=== PATIENT | male | born 1975 | race Caucasian/White ===

== ENCOUNTER 2024-08-21 13:12 | Outpatient (OUT) | payer BC, SELFPAY ==
--- OUTSIDE RECORDS SUMMARY | 2024-07-26 12:15 | XMS_ITS ---
Author Organization [facility] in [place] Address [address] [place] [address] Care Team Providers Care Teacher Of The Deaf Name Role Phone Chuck Rudolph Primary Care Provider Allergies No Known Allergies REASON FOR VISIT establish NO meds back pain, Hypertension Medications Medication SIG (Take, Route, Frequency, Duration) Notes Start Date End Date Status Metoprolol Tartrate 50 MG 1 tablet with food Orally Twice a day for 30 days 07/26/2024 Active Problems Problem Type SNOMED Code ICD Code Onset Dates Problem Status W/U Status Risk Notes Problem Hypertension (16469762) Hypertension (I10) Active confirmed Problem Well adult (756768924) Well adult (Z00.00) Active confirmed Vital Signs Weight 248.0 lbs 07/26/2024 Height 6ft in 07/26/2024 Blood pressure systolic 240 mm Hg 07/27/19 25 Blood pressure diastolic 160 mm Hg 025 BMI 33.63 kg/m2 07/26/2024 Encounters Encounter Location Date Provider Diagnosis [facility] [address] [place] [address] 07/26/2024 Chuck Rudolph Well adult Z00.00 an d Hypertension I10 Assessments Encounter Date Diagnosis (ICD Code) Assessment Notes Treatment Notes Treatment Clinical Notes Section Notes 07/26/2024 Well adult (ICD-10 - Z00.00) 07/26/2024 Hypertension (ICD-10 - I10) Plan Of Treatment Medication Medication Name Sig Start Date Stop Date Notes Metoprolol Tartrate 50 MG 1 tablet with food Orally Twice a day for 30 days 07/26/2024 Pending Test Test Name Order Date HEMOGLOBIN A1C (GLYCO) 07/26/2024 LIPID PANEL (CHOL/TRIG/HDL/LDL) 07/27/19 25 THYROID PANEL (T4/TSH/FREE T3) PSA, SCREENING 07/26/2024 CMP (COMP MET DYER) w/eGFR CKD-EPI 2024 CBC WITH DIFF 07/26/2024 Progress Notes * Donald DIETZ ADOB:[birth year] (49 yo M)Acc No.[id number]:07/26/2024 Progress Note Patient: Donald JARVIS A Provider: Fe Rudolph ([facility])MD :1975 A ge:49 Y S ex:Male Date:07/26/2024 Address:[address] [place], [place] [id number] Check In:04:01 PM ESTCheck O ut:05:00 PM EST Subjective: * Chief Complaints: * e stablish NO meds back painHypertension * HPI: G eneral: BP way up - has been on meds in the past. * ROS: E ENT: hearing changes d enies. v isual changes d enies.?non-healing mouth sores d enies. s wollen glands or neck lumps d enies. h oarseness d enies. s ore throat d enies. d ifficulty swallowing d enies. n ose bleeds d enies. n amanuel congestion d enies. e ar ache d enies. e ar discharge?denies. r inging in ears d enies. l ight sensitivity d enies. e ye pain d enies. b lurring d enies. e ye irritation d enies. d ouble vision d enies.?vision loss d enies. G eneral/Constitutional: Sweats: D enies. F atigue d enies. S leep problems d enies. A norexia d enies. M alaise d enies. W eight loss d enies.?Fatigue or Weakness d enies. F ever or Chills d enies. C ardiovascular: Shortness of Breath w/lying flat d enies. L ightheadedness/dizziness d enies. C hest tightness/ heavy pressure d enies. S welling of legs, ankles, or feet d enies. W aking up with shortness of breath d enies. C hest pain denies. P alpitations d enies. W eight gain d enies. R espiratory: Chronic or frequent cough d enies. C oughing up blood?denies. D ifficulty breathing d enies. P roductive cough d enies. S noring?denies. S hortness of breath that awakens from sleep (PND) d enies. C hest pain d enies. S putum production d enies. W heezing d enies. M usculoskeletal: Joint pain d enies. J oint Fluid d enies. B ack pain d enies. K nee pain d enies. N elayne pain d enies. J oint Stiffness d enies. M uscle cramps d enies. W eakness of muscles d enies. A rthritis d enies. M uscle aches d enies. P ain in shoulder(s) d enies. S wollen joints d enies. * Active Problem List I10 Hypertension Modified On:07/26/2024W/U Status:confirmed Z00.00 Well adult Modified On:07/26/2024W/U Status:confirmed * Medical History: * Surgical History: s houlder surgery- left * Hospitalization/Major Diagno stic Procedure: D enies Past Hospitalization * Family History: F ather: alive. M other: alive. B rother(s): alive. S ister(s): alive. * Medications: N one * Allergies: N .K.D.A.no[Allergies Verified] Objective: * Vitals: W t:248.0lbs, Ht: 6ft, BP: 232/142 mm Hg,240/160mm Hg, BMI:33.63Index, Ht-cm: 182.88 cm, Wt-k.49 kg. * Examination: P hysical Exam: GENERAL: w ell developed, well nourished, in no acute distress. HEAD: n ormocephalic/atraumatic. EYES: p upils equal, round and reactive to light, conjunctivae and sclerae normal. EARS: n o deformity or lesion of external ear, canals and TM appear normal bilaterally, TM's intact, not inflamed with normal light reflex, hearing grossly normal to conversational speech. NOSE: n o deformity, discharge, inflammation, or lesions.? MOUTH: m ucous membranes moist, normal oropharynx and posterior pharynx without lesions or exudates, tongue normal, dentition normal. NECK: n elayne supple, no masses or palpable cervical nodes, trachea midline, thyroid without nodules, masses, tenderness, or enlargement. CHEST: n o chest wall deformity, no chest wall tenderness.? LUNGS: n ormal respiratory effort and clear to auscultation, no wheezes, rales, or rhonchi, good air exchange. CARDIO: r egular rate and rhythm, normal S1 and S2, nor murmur, rub, or gallop. PULSES: n ormal capillary refill. ABDOMEN: s oft, non-distended, non-tender, no masses. MUSCULOSKELETAL: n o deformity or scoliosis noted, normal range of motion, joints normal, no erythema, edema, effusion, or ecchymosis. EXTREMITY: n o clubbing, cyanosis, edema, or deformity with normal ROM in both upper and lower bilateral extremities. NEUROLOGIC: g rossly normal. SKIN: n o rashes, ulcerations, or suspicious lesions. LYMPH NODES: n o cervical adenopathy, nodes normal. MENTAL STATUS: a lert and oriented x3, normal mood and affect. Assessment: * Assessment: 1. W ell adult - Z00.00 (Primary) 2 . H ypertension - I10 Plan: * Treatment: * Procedure Codes: * * Sign off status: Completed Visit Status: C HK (Check Out) true * Provider: Fe Rudolph ([facility])MD Date: 0 07/26/2024 Generated for Printi ng/Fagig/eTransmitting on: 0 08/21/2024 01:20 PM EDT History and Physical Notes * HPI (History of Present Illness) Category Sub-Category Detail Notes Category Not es General BP way up - has been on meds in the past Examination Category Sub-Category Detail Notes Category Not es Physical Exam GENERAL: well developed, well nourished, in no acute distress HEAD: normocephalic/atraum atic EYES: pupils equal, round and reactive to light, conjunctivae and sclerae normal EARS: no deformity or lesi on of external ear, canals and TM appear normal bilaterally, TM's intact, not inflamed with normal light reflex, hearing grossly normal to conversational speech NOSE: no deformity, discha rge, inflammation, or lesions MOUTH: mucous membranes kady st, normal oropharynx and posterior pharynx without lesions or exudates, tongue normal, dentition normal NECK: neck supple, no mass es or palpable cervical nodes, trachea midline, thyroid without nodules, masses, tenderness, or enlargement CHEST: no chest wall deform ity, no chest wall tenderness LUNGS: normal respiratory e ffort and clear to auscultation, no wheezes, rales, or rhonchi, good air exchange CARDIO: regular rate and rhy thm, normal S1 and S2, nor murmur, rub, or gallop PULSES: normal capillary ref ill ABDOMEN: soft, non-distended, non-tender, no masses RECTAL: MUSCULOSKELETAL: no deformity or scol iosis noted, normal range of motion, joints normal, no erythema, edema, effusion, or ecchymosis EXTREMITY: no clubbing, cyanosi s, edema, or deformity with normal ROM in both upper and lower bilateral extremities NEUROLOGIC: grossly normal SKIN: no rashes, ulceratio ns, or suspicious lesions LYMPH NODES: no cervical adenopat hy, nodes normal MENTAL STATUS: alert and oriented x 3, normal mood and affect
--- OUTSIDE RECORDS SUMMARY | 2024-07-27 05:24 | XMS_ITS ---
Author Organization [facility] in [place] Address [address] [place] [address] Care Team Providers Care Mixer Dry Food Products Name Role Phone Chuck Rudolph Primary Care Provider [phone] REASON FOR VISIT refill Medications Medication SIG (Take, Route, Frequency, Duration) Notes Start Date End Date Status Metoprolol Tartrate 50 MG 1 tablet with food Orally Twice a day for 30 days 07/26/2024 Active Encounters Encounter Location Date Provider Diagnosis [address] [address] 07/27/2024 Chuck Rudolph Well adult Z00.00 Assessments Encounter Date Diagnosis (ICD Code) Assessment Notes Treatment Notes Treatment Clinical Notes Section Notes 07/27/2024 Well adult (ICD-10 - Z00.00) Plan Of Treatment Medication Medication Name Sig Start Date Stop Date Notes Metoprolol Tartrate 50 MG 1 tablet with food Orally Twice a day for 30 days 07/26/2024 Progress Notes * Donald DIETZ ADOB:[birth year] (49 yo M)Acc No.[id number]:07/27/2024 Patient: Donald JARVIS :1975 A ge:49 Y S ex:Male Address:[address] [place] [address] [address], [place], [address] * Refills Refill Metoprolol Tartrate Tablet, 50 MG, Orally, 60, 1 tablet with food, Twice a day, 30 days, Refills=11 * true * Date: Generated for Tj montemayor/[place]/Treasure on: 0 08/21/2024 01:19 PM EDT
--- OUTSIDE RECORDS SUMMARY | 2024-08-02 12:00 | XMS_ITS ---
Author Organization [facility] in [place] Address [address] [place] [address] Care Team Providers Care Manufacturing Engineering Intern Name Role Phone Chuck Rudolph Primary Care [...] for 30 days 07/26/2024 Active Vital Signs Weight 249 lbs 08/02/2024 Height 6ft in 08/02/2024 Blood pressure systolic 242 mm Hg 08/03/19 25 Blood pressure diastolic 142 mm Hg 025 BMI 33.77 kg/m2 08/02/2024 Encounters Encounter Location Date Provider Diagnosis [facility] [address] [place] [address] 08/02/2024 Chuck Rudolph Hypertension I10 Assessments Encounter [...] at home regularly. Progress Notes * Donald DIEZT ADOB:[birth year] (49 yo M)Acc No.[id number]:08/02/2024 Progress Note Patient: Donald JARVIS Provider: Fe Rudolph ([facility])MD :1975 A ge:49 Y S ex:Male Date:08/02/2024 Address:[address] [place], [place] [id number] Check In:03:51 PM ESTCheck O ut:04:43 PM [...] Procedure Codes: * Preventive Medicine: Screenings/Counseling: B [place] ACTION PLAN Above Normal BMI Follow-up D ietary management education, guidance, and counseling * * Sign off status: Completed Visit Status: C HK (Check Out) true * Provider: Fe Rudolph ([facility])MD Date: 0 08/02/2024 Generated for Tj montemayor/[place]/eTransmitting on: 0 08/21/2024 01:19 PM EDT History and Physical Notes * [...]
[2024-08-21 13:55] LABS: Basophils Absolute Auto 0.1 10^3/uL (0.0-0.1); Basophils Percent Auto 0.6 % (0.2-2.0); Eosinophils Absolute Auto 0.5 10^3/uL (0.0-0.7); Eosinophils Percent Auto 4.8 % (0.9-7.0); Hematocrit 38.3 % (42.0-54.0); Hemoglobin 12.6 g/dL (14.0-18.0); Immature Granulocytes Abs Auto 0.04 10^3/uL (0.00-0.03); Immature Granulocytes Pct Auto 0.4 % (0.0-0.5); Lymphocytes Absolute Auto 2.4 10^3/uL (1.2-3.8); Mean Corpuscular HGB Conc 32.9 g/dL (29.9-35.2); Mean Corpuscular Hemoglobin 31.1 pg (25.9-34.0); Mean Corpuscular Volume 94.6 fL (80.0-94.0); Mean Platelet Volume 9.7 fL (9.5-13.5); Monocytes Absolute Auto 0.8 10^3/uL (0.3-0.8); Monocytes Percent Auto 8.3 % (1.7-12.0); Neutrophils Absolute Auto 5.8 10^3/uL (1.4-6.5); Neutrophils Percent Auto 60.9 % (43.0-75.0); Platelet Count 406 10^3/uL (150-450); Red Blood Count 4.05 10^6/uL (4.70-6.10); Red Cell Distribution Width 11.8 % (11.0-15.0); White Blood Count 9.5 10^3/uL (4.0-11.0)
[2024-08-21 14:54] LABS: Alanine Aminotransferase 55 U/L (16-63); Albumin Level 3.7 g/dL (3.4-5.0); Alkaline Phosphatase 111 U/L (46-116); Anion Gap 11.4; Aspartate Amino Transferase 22 U/L (15-37); BUN Creatinine Ratio 22.9; Bilirubin Total 0.4 mg/dL (0.2-1.0); Calcium 9.5 mg/dL (8.5-10.1); Carbon Dioxide 30.1 mmol/L (21.0-32.0); Chloride 102 mmol/L (98-107); Chol HDL Ratio 5.9; Cholesterol 231 mg/dL (<=200); Estimated GFR (African America >60 (>=60 mL/min/1.73m^2); Estimated GFR (Non-African Ame >60 (>=60 mL/min/1.73m^2); Free T3 2.29 pg/mL (2.18-3.98); Globulin 3.6 g/dL; Glucose 116 mg/dL (74-106); HDL Cholesterol 39 mg/dL (40-60); Potassium 4.5 mmol/L (3.5-5.1); Sodium 139 mmol/L (136-145); Thyroid Stimulating Hormone 1.956 uIU/mL (0.358-3.740); Total Protein 7.3 g/dL (6.4-8.2); Triglycerides 133 mg/dL (<=150); VLDL CHOLESTEROL 26.6 mg/dL
[2024-08-21 15:20] LABS: Estimated Average Glucose 154 mg/dL
[2024-08-21 15:23] LABS: Prostate Specific Antigen Scrn 1.34 ng/mL (<=4.00)
== END 2024-08-21 13:13 | disposition home or self-care (01) ==
PROVIDERS: PCP Family Medicine; Visit Provider Family Medicine
DX: Z00.00 Encounter for general adult medical examination without abnormal findings (principal)
CPT/HCPCS: 36415; 80053; 80061; 83036; 84436; 84443; 84481; 85025; G0103

== ENCOUNTER 2024-08-26 09:11 | Outpatient (REF) | payer BC, SELFPAY ==
--- OUTSIDE RECORDS SUMMARY | 2024-07-27 05:24 | XMS_ITS ---
Author Organization [facility] in [place] Address [address] [place] [address] Care Team Providers Care Electrician Third Name Role Phone Chuck Rudolph Primary Care Provider [phone] REASON FOR VISIT refill Medications Medication SIG (Take, Route, Frequency, Duration) Notes Start Date End Date Status Metoprolol Tartrate 50 MG 1 tablet with food Orally Twice a day for 30 days 07/26/2024 Active Encounters Encounter Location Date Provider Diagnosis [address] [address] 07/27/2024 Chuck Rudolph Well adult Z00.00 Assessments [...] Donald DIETZ ADOB:[birth year] (49 yo M)Acc No.[id number]:07/27/2024 Patient: Donald JARVIS :1975 A ge:49 Y S ex:Male Address:[address] [place] [address] [address], [place], [address] * Refills Refill Metoprolol Tartrate Tablet, 50 MG, Orally, 60, 1 tablet with food, Twice a day, 30 days, Refills=11 * true * Date: Generated for Tj montemayor/[place]/Treasure on: 0 08/26/2024 09:13 AM EDT
--- OUTSIDE RECORDS SUMMARY | 2024-08-02 12:00 | XMS_ITS ---
Author Organization The [facility] in [place] Address [address] [place] [address] Care Team Providers Care Primary Operator Name Role Phone Chuck Rudolph Primary Care Provider [phone] Allergies No Known Allergies REASON FOR VISIT 1 week f/u Medications Medication SIG (Take, Route, Frequency, Duration) Notes Start Date End Date Status Irbesartan 150 MG 1 tablet Orally Once a day for 30 days 08/02/2024 Active Metoprolol Tartrate 100 MG 1 tablet with food Orally Twice a day for 30 days 07/26/2024 Active Vital Signs Blood pressure systolic 242 mm Hg 08/03/19 25 Blood pressure diastolic 142 mm Hg 025 Height 6ft in 08/02/2024 Weight 249 lbs 08/02/2024 BMI 33.77 kg/m2 08/02/2024 Encounters Encounter Location Date Provider Diagnosis [facility] [address] [place] [address] 08/02/2024 Chuck Rudolph Hypertension I10 Assessments Encounter Date Diagnosis (ICD Code) Assessment Notes Treatment Notes Treatment Clinical Notes Section Notes 08/02/2024 Hypertension (ICD-10 - I10) 08/02/2024 Other Continue taking medications as prescribed and monitor BP at home regularly. Plan Of Treatment Medication Medication Name Sig Start Date Stop Date Notes Irbesartan 150 MG 1 tablet Orally Once a day for 30 days 08/02/2024 Metoprolol Tartrate 100 MG 1 tablet with food Orally Twice a day for 30 days 07/26/2024 Treatment Notes Assessment Notes Other Continue taking medi cations as prescribed and monitor BP at home regularly. Progress Notes * Donald DIETZ ADOB:[birth year] (49 yo M)Acc No.[id number]:08/02/2024 Progress Note Patient: Donald JARVIS Provider: Fe Rudolph ([facility])MD :1975 A ge:49 Y S ex:Male Date:08/02/2024 Address:[address] [place], [place] [id number] Check In:03:51 PM ESTCheck O ut:04:43 PM EST Subjective: * Chief Complaints: * 1 week f/u * HPI: G eneral: Fing weell lowest BP s 190. H ypertension: The patient complains of h igh blood pressure. The symptoms have been present for 1 -2 days. The symptoms are m oderate. Symptomatic treatment has included h ome blood pressure monitoring. Associated symptoms include n one. * ROS: G eneral/Constitutional: Lightheadedness d enies. F atigue or Weakness d enies. C ardiovascular: Chest pain at rest d enies. C hest pain with exertion?denies. I rregular heartbeat d enies. R espiratory: Shortness of breath d enies. S hortness of breath at rest d enies. W heezing d enies. N eurologic: Dizziness d enies. F ainting d enies. H eadache?denies. * Active Problem List I10 Hypertension Modified On:07/26/2024W/U Status:confirmed Z00.00 Well adult Modified On:07/26/2024W/U Status:confirmed * Medical History: * Surgical History: s houlder surgery- left * Hospitalization/Major Diagno stic Procedure: D enies Past Hospitalization * Family History: F ather: alive. M other: alive. B ashutosh(s): alive. S ister(s): alive. * Medications: U nknownMetoprolol Tartrate 50 MG Tablet 1 tablet with food Orally Twice a day Medication List reviewed and reconciled with the patientUnknown Metoprolol Tartrate 50 MG Tablet 1 tablet with food Orally Twice a day Medication List reviewed and reconciled with the patient * Allergies: N .K.D.A.no[Allergies Verified] Objective: * Vitals: W t:249lbs, Ht: 6ft, BP:242/142mm Hg, BMI:33.77Index, Ht-cm: 182.88 cm, Wt-k.95 kg. * Examination: G eneral Examination: GENERAL APPEARANCE: in no acute distress, well developed, well nourished. LUNGS: clear to auscultation bilaterally. CARDIO: S1, S2 normal, no murmurs, rubs, gallops. EXTREMITIES: no clubbing, cyanosis, or edema. NEUROLOGIC: alert, oriented to time, place, & person.? Assessment: * Assessment: 1. H ypertension - I10 (Primary) Plan: * Treatment: 2. O thers Notes:Continue taking medications as prescribed and monitor BP at home regularly. * Procedure Codes: * Preventive Medicine: Screenings/Counseling: B [place] ACTION PLAN Above Normal BMI Follow-up D ietary management education, guidance, and counseling * * Sign off status: Completed Visit Status: C HK (Check Out) true * Provider: Fe Rudolph ([facility])MD Date: 0 08/02/2024 Generated for Rayi sim/[place]/eTransmitting on: 0 08/26/2024 09:13 AM EDT History and Physical Notes * HPI (History of Present Illness) Category Sub-Category Detail Notes Category Not es General Fing weell lowest BP s 190 Hypertension The patient complain s of high blood pressure The symptoms have been present for 1-2 d ays The symptoms are moderate Symptomatic treatment has included home blood pressure monitoring Associated symptoms include none Examination Category Sub-Category Detail Notes Category Not es General Examination GENERAL APPEARANCE: in no ac arjun distress, well developed, well nourished CARDIO: S1, S2 normal, no mu rmurs, rubs, gallops LUNGS: clear to auscultatio n bilaterally NEUROLOGIC: alert, oriented to t niyah, place, & person EXTREMITIES: no clubbing, cyanosi s, or edema
--- OUTSIDE RECORDS SUMMARY | 2024-08-21 16:36 | XMS_ITS ---
Author Organization [facility] in [place] Address [address] [place] [address] Care Team Providers Care Correctional Food Service Supervisor Name Role Phone Chuck Rudolph Primary Care Provider [phone] REASON FOR VISIT labs- requesting xray Medications Medication SIG (Take, Route, Frequency, Duration) Notes Start Date End Date Status Lancets 30G - Use 1 lancet E11.9 o nce daily for 90 days 08/22/2024 Active Test Strips - Dx: E11.9 Dx: Diabet es Type II Once daily for 90 days 08/22/2024 Active Blood Glucose Monitor System w/Device use device Dx:E11.9 daily to monitor blood glucose level 08/22/2024 Active Problems Problem Type SNOMED Code ICD Code Onset Dates Problem Status W/U Status Risk Notes Problem Anemia (D64.9) Active confirmed Encounters Encounter Location Date Provider Diagnosis [facility] [address] [place] [address] 08/21/2024 Chuck Rudolph Anemia D64.9 and Low back pain at multiple sites M54.50 Assessments Encounter Date Diagnosis (ICD Code) Assessment Notes Treatment Notes Treatment Clinical Notes Section Notes 08/21/2024 Anemia (ICD-10 - D64.9) 08/21/2024 Low back pain at multiple sites (ICD-10 - M54.50) Plan Of Treatment Medication Medication Name Sig Start Date Stop Date Notes Lancets 30G - Use 1 lancet E11.9 o nce daily for 90 days 08/22/2024 Test Strips - Dx: E11.9 Dx: Diabet es Type II Once daily for 90 days 08/22/2024 Blood Glucose Monitor System w/Device use device Dx:E11.9 daily to monitor blood glucose level 08/22/2024 Pending Test Test Name Order Date FECAL OCCULT BLOOD 08/21/2024 XR LSPINE 2_3 VIEWS 08/21/2024 Progress Notes * Donald DIETZ ADOB:[birth year] (49 yo M)Acc No.[id number]:08/21/2024 Patient: Donald JARVIS :1975 A ge:49 Y S ex:Male Address:[address] [place] [address] * Refills Start Blood Glucose Monitor System Kit, w/Device, 1, use device Dx:E11.9 daily to monitor blood glucose level, Refills=0 Start Test Strips -, -, 100, Dx: E11.9 Dx: Diabetes Type II Once daily, 90 days, Refills=3 Start Lancets 30G Miscellaneous, -, 100, Use 1 lancet E11.9 once daily, 90 days, Refills=3 Subjective: * Chief Complaints: * L abs- requesting xray * Medical History: * Surgical History: * Hospitalization/Major Diagno stic Procedure: * Medications: Objective: * Vitals: * Physical Examination: Assessment: * Assessment: 1. A nemia - D64.9 (Primary) 2 . L ow back pain at multiple sites - M54.50? Plan: * Treatment: 2. L ow back pain at multiple sites I maging: XR LSPINE 2_3 VIEWS 3. O thers Start Blood Glucose Monitor System Kit, w/Device, use device Dx:E11.9 daily to monitor blood glucose level, 1, Refills 0; S tart Test Strips -, -, Dx: E11.9 Dx: Diabetes Type II Once daily, 90 days, 100, Refills 3; S tart Lancets 30G Miscellaneous, -, Use 1 lancet E11.9 once daily, 90 days, 100, Refills 3. * Procedure Codes: * true * Date: Generated for Printi ng/Fagig/eTransmitting on: 0 08/26/2024 09:13 AM EDT
--- OUTSIDE RECORDS SUMMARY | 2024-08-26 09:13 | XMS_ITS | Patient Health Record ---
Author Organization The [facility] in [place] Address [address] [place] [address] Care Team Providers Care Environmental Protection Geologist Name Role Phone Chuck Rudolph Primary Care Provider [phone] Allergies No Known Allergies Results Component Value Reference Range Notes CBC AUTO DIFF Reviewed date:08/21/2024 08:39:04 PM Interpretation: Performing Lab: Notes/Report: [facility] , White Blood Count 9.5 4.0-11.0 10 3/uL Red Blood Count 4.05 4.70-6.10 10 6/uL Hemoglobin 12.6 14.0-18.0 g/dL Hematocrit 38.3 42.0-54.0 % Mean Corpuscular Volume 94.6 80.0-94.0 fL Mean Corpuscular Hemoglobin 31.1 25.9-34.0 pg Mean Corpuscular HGB Conc 32.9 29.9-35.2 g/dL Red Cell Distribution Width 11.8 11.0-15.0 % Platelet Count 406 150-450 10 3/uL Mean Platelet Volume 9.7 9.5-13.5 fL Neutrophils Percent Auto 60.9 43.0-75.0 % Lymphocytes Percent Auto 25.0 20.5-60.0 % Monocytes Percent Auto 8.3 1.7-12.0 % Eosinophils Percent Auto 4.8 0.9-7.0 % Basophils Percent Auto 0.6 0.2-2.0 % Immature Granulocytes Pct Auto 0.4 0.0-0.5 % Neutrophils Absolute Auto 5.8 1.4-6.5 10 3/uL Lymphocytes Absolute Auto 2.4 1.2-3.8 10 3/uL Monocytes Absolute Auto 0.8 0.3-0.8 10 3/uL Eosinophils Absolute Auto 0.5 0.0-0.7 10 3/uL Basophils Absolute Auto 0.1 0.0-0.1 10 3/uL Immature Granulocytes Abs Auto 0.04 0.00-0.03 10 3/uL Performing Lab: see note ML - [facility] FREE T3 Reviewed date:08/21/2024 08:39:04 PM Interpretation: Performing Lab: Notes/Report: [facility] , Free T3 2.29 2.18-3.98 pg/mL Performing Lab: see note ML - [facility] GLYCOHEMOGLOBIN A1C Reviewed date:08/21/2024 08:39:04 PM Interpretation: Performing Lab: Notes/Report: [facility] , Glycohemoglobin A1C 7.0 4.5-6.2 % > 7.0 ADA THERAPEUTIC TARGET < 7.0 ACTION SUGGESTED ADA RECOMMENDED LIMIT 4.0 - 6.0 Estimated Average Glucose 154 Performing Lab: see note ML - [facility] LIPID PROFILE Reviewed date:08/21/2024 08:39:04 PM Interpretation: Performing Lab: Notes/Report: [facility] , Triglycerides 133 <=150 mg/dL Cholesterol 231 <=200 mg/dL HDL Cholesterol 39 40-60 mg/dL > or =60 mg/dl - LOW CARDIOVASCULAR RISK <40 mg/dl - HIGH CARDIOVASCULAR RISK LDL Cholesterol Calculated 166.0 160-189 mg/dl HIGH <100 mg/dl OPTIMAL >190 mg/dl VERY HIGH 130-159 mg/dl BORDERLINE HIGH 100-129 mg/dl NEAR OR ABOVE OPTIMAL VLDL CHOLESTEROL 26.6 Chol HDL Ratio 5.9 4.4 - 7.1 AVERAGE RISK 3.3 - 4.4 LOW RISK >11.0 HIGH RISK 7.1 - 11.0 MODERATE RISK Performing Lab: see note ML - [facility] PROF 14(COMP METB) Reviewed date:08/21/2024 08:39:05 PM Interpretation: Performing Lab: Notes/Report: [facility] , Sodium 139 136-145 mmol/L Potassium 4.5 3.5-5.1 mmol/L Chloride 102 98-107 mmol/L Carbon Dioxide 30.1 21.0-32.0 mmol/L Anion Gap 11.4 Glucose 116 74-106 mg/dL Blood Urea Nitrogen 19.0 7.0-18.0 mg/dL Creatinine 0.83 0.70-1.30 mg/dL Estimated GFR ( Viktoria >60 >=60 mL/min/1.73m 2 Estimated GFR (Non- Yanet >60 >=60 mL/min/1.73m 2 BUN Creatinine Ratio 22.9 Calcium 9.5 8.5-10.1 mg/dL Bilirubin Total 0.4 0.2-1.0 mg/dL Aspartate Amino Transferase 22 15-37 U/L Alanine Aminotransferase 55 16-63 U/L Alkaline Phosphatase 111 46-116 U/L Total Protein 7.3 6.4-8.2 g/dL Albumin Level 3.7 3.4-5.0 g/dL Globulin 3.6 Albumin Globulin Ratio 1.0 Performing Lab: see note ML - [facility] PSA SCREENING Reviewed date:08/21/2024 08:39:05 PM Interpretation: Performing Lab: Notes/Report: [facility] , Prostate Specific Antigen Scrn 1.34 <=4.00 ng/mL Performing Lab: see note ML - [facility] LB T4 Reviewed date:08/21/2024 08:39:05 PM Interpretation: Performing Lab: Notes/Report: [facility] , T4 Thyroxine 6.10 4.50-12.10 ug/dL Performing Lab: see note ML - [facility] LB TSH Reviewed date:08/21/2024 08:39:05 PM Interpretation: Performing Lab: Notes/Report: [facility] , Thyroid Stimulating Hormone 1.956 0.358-3.740 u IU/mL Performing Lab: see note ML - [facility] LB Reason For Referral No Information Medications Medication SIG (Take, Route, Frequency, Duration) Notes Start Date End Date Status Lancets 30G - Use 1 lancet E11.9 o nce daily for 90 days 08/22/2024 Active Irbesartan 150 MG 1 tablet Orally Once a day for 30 days 08/02/2024 Active Metoprolol Tartrate 100 MG 1 tablet with food Orally Twice a day for 30 days 07/26/2024 Active Test Strips - Dx: E11.9 Dx: Diabet es Type II Once daily for 90 days 08/22/2024 Active Blood Glucose Monitor System w/Device use device Dx:E11.9 daily to monitor blood glucose level 08/22/2024 Active Problems Problem Type SNOMED Code ICD Code Onset Dates Problem Status W/U Status Risk Notes Problem Hypertension (40396047) Hypertension (I10) Active confirmed Problem Anemia (774408601) Anemia (D64.9) Active confirmed Problem Well adult (714994350) Well adult (Z00.00) Active confirmed Vital Signs Blood pressure diastolic 142 mm Hg 08/02/2024 Height 6ft in 08/02/2024 Blood pressure systolic 242 mm Hg 08/02/2024 Weight 249 lbs 08/02/2024 BMI 33.77 kg/m2 08/02/2024 Encounters Encounter Location Date Provider Diagnosis [facility] [address] [place] [address] 07/27/2024 Chuck Hoy Well adult Z00.00 [place] [address] [place] [address] 08/21/2024 Chuck Hoy Anemia D64.9 and Low back pain at multiple sites M54.50 [facility] [address] [place] [address] 07/26/2024 Chuck Hoy Well adult Z00.00 an d Hypertension I10 [place] [address] [place] [address] 08/02/2024 Chuck Hoy Hypertension I10 Assessments Encounter Date Diagnosis (ICD Code) Assessment Notes Treatment Notes Treatment Clinical Notes Section Notes 07/26/2024 Well adult (ICD-10 - Z00.00) 07/26/2024 Hypertension (ICD-10 - I10) 08/02/2024 Hypertension (ICD-10 - I10) 07/27/2024 Well adult (ICD-10 - Z00.00) 08/21/2024 Anemia (ICD-10 - D64.9) 08/21/2024 Low back pain at multiple sites (ICD-10 - M54.50) 08/02/2024 Other Continue taking medications as prescribed and monitor BP at home regularly. Plan Of Treatment Pending Test Test Name Order Date HEMOGLOBIN A1C (GLYCO) 07/26/2024 LIPID PANEL (CHOL/TRIG/HDL/LDL) 07/27/19 25 FECAL OCCULT BLOOD 08/21/2024 XR LSPINE 2_3 VIEWS 08/21/2024 THYROID PANEL (T4/TSH/FREE T3) 5 PSA, SCREENING 07/26/2024 CMP (COMP MET DYER) w/eGFR CKD-EPI 2024 CBC WITH DIFF 07/26/2024 Insurance Providers Payer Name Payer Address Payer Phone Subscriber Number Group Number Insured Name Patient Relationship to Insured Coverage Start Date Coverage End Date [employer] PPO PLUS LOCAL PLAN [address] [place] [address] [id number] Donald Cervantes Self - patient is the insured Medical (General) History Medical History History ICD Code Hypertension I10 Surgical History Surgery Date(Month/Year) shoulder surgery- left
[2024-08-26 10:50] LABS: Occult Blood Negative
[2024-08-26 10:51] LABS: Internal Control Within Normal Limits
== END 2024-08-26 09:12 | disposition home or self-care (01) ==
LOC: LAB 09:11
PROVIDERS: PCP Family Medicine; Visit Provider Family Medicine
DX: D64.9 Anemia, unspecified (principal)
CPT/HCPCS: G0328

== ENCOUNTER 2024-08-31 14:04 | Outpatient (OUT) | payer BC, SELFPAY ==
--- NOTE | 2024-08-31 14:20 | XR_ITS ---
The [place] [id number] Patient Name: DEMETRIO DIETZ MRN: [id number] date: 1975 Sex: M Assigned Patient Location: RAD Current Patient Location: LAB Accession/Order Number: [id number] Exam Date: 08/31/2024 14:58 Report Date: 08/31/2024 14:58 At the request of: JESSI SPICER MD Procedure: XR lumbar spine 2-3V LUMBAR SPINE - 2 views CLINICAL HISTORY: Low back pain at multiple sites m54.50 COMPARISON: None FINDINGS: Vertebral body heights appear maintained. Endplate and facet joint degenerative changes with diffuse mild disc space narrowing. XR/XR lumbar spine 2-3V IMPRESSION: MILD DIFFUSE DEGENERATIVE DISC DISEASE. Impression dictated by: Parish Landrum Jr. DMehreenOMehreen 08/31/2024 2:58 PM Dictation Location: [place] [address] Electronically authenticated by: [id number] Y Date: 08/31/2024 14:58
== END 2024-08-31 14:05 | disposition home or self-care (01) ==
LOC: RAD 14:06
PROVIDERS: PCP Family Medicine; Visit Provider Family Medicine
DX: M54.50 Low back pain, unspecified (principal); M51.369 Other intervertebral disc degeneration, lumbar region without mention of lumbar back pain or lower extremity pain
CPT/HCPCS: 72100

== ENCOUNTER 2024-09-01 10:09 | Emergency (ER) | payer BC, SELFPAY ==
--- OUTSIDE RECORDS SUMMARY | 2024-08-30 12:00 | XMS_ITS ---
Author Organization [facility] in [place] Address [address] [place] [address] Care Team Providers Care Technical Document Writer Name Role Phone Chuck Rudolph Primary Care Provider [phone] Allergies No Known Allergies REASON FOR VISIT Dizziness, Fatigue Medications Medication SIG (Take, Route, Frequency, Duration) Notes Start Date End Date Status Blood Glucose Monitor System w/Device use device Dx:E11.9 daily to monitor blood glucose level 08/22/2024 Active Metoprolol Tartrate 50 MG 1 tablet with food Orally Twice a day for 30 days 07/26/2024 Active Lancets 30G - Use 1 lancet E11.9 o nce daily for 90 days 08/22/2024 Active Irbesartan 150 MG 1 tablet Orally Once a day for 30 days 08/02/2024 Active Test Strips - Dx: E11.9 Dx: Diabet es Type II Once daily for 90 days 08/22/2024 Active Social History Tobacco Use: Social History Observation Description Date Details (start date - stop date) Current Smoker NA - NA Tobacco Control (Standard) Question Answer Notes Tobacco use: Current smoker AUDIT-C (Standard) Question Answer Notes Did you have a drink containing alcohol in the p ast year? No Points 0 Interpretation Negative Problems Problem Type SNOMED Code ICD Code Onset Dates Problem Status W/U Status Risk Notes Problem Diabetes (E11.9) Active confirmed Vital Signs Weight 237.0 lbs 08/30/2024 Height 6ft in 08/30/2024 Blood pressure systolic 182 mm Hg 08/31/19 25 Blood pressure diastolic 92 mm Hg 025 BMI 32.14 kg/m2 08/30/2024 Encounters Encounter Location Date Provider Diagnosis [facility] [address] [facility] [place] [address] 08/30/2024 Chuck Armingrace Hypertension I10 and Diabetes E11.9 Assessments Encounter Date Diagnosis (ICD Code) Assessment Notes Treatment Notes Treatment Clinical Notes Section Notes 08/30/2024 Hypertension (ICD-10 - I10) 08/30/2024 Diabetes (ICD-10 - E11.9) Plan Of Treatment Medication Medication Name Sig Start Date Stop Date Notes Metoprolol Tartrate 50 MG 1 tablet with food Orally Twice a day for 30 days 07/26/2024 Irbesartan 150 MG 1 tablet Orally Once a day for 30 days 08/02/2024 Progress Notes * Donald DIETZ ADOB:[birth year] (49 yo M)Acc No.[id number]:08/30/2024 UNLOCKED PROGRESS NOTE Progress Note Patient: Donald JARVIS A Provider: Fe Rudolph ([facility])MD :1975 A ge:49 Y S ex:Male Date:08/30/2024 Address:[address] [place], [place] [address] Check In:03:49 PM ESTCheck O ut:04:32 PM EST Subjective: * Chief Complaints: * 1 . Dizziness, Fatigue. * HPI: G eneral: diziness and off balnce - blurry vision - sugatr wsa goo bp wwa low. * ROS: E ENT: hearing changes d [...] enies. S wollen joints d enies. * Medical History: H ypertension. * Surgical History: s houlder surgery- left . * Hospitalization/Major Diagno stic Procedure: D enies Past Hospitalization. * Family History: F ather: alive. M other: alive. B rother(s): alive. S ister(s): alive. * Social History: T obacco Use: T obacco Control (Standard) T obacco use: C urrent smoker D rug/Alcohol: A YESIKA-C (Standard) D id you have a drink containing alcohol in the past year? N o P oints 0 I nterpretation N egative * Medications: T Content Raveng Blood Glucose Monitor System w/Device Kit use device Dx:E11.9 daily to monitor blood glucose level , Taking Irbesartan 150 MG Tablet 1 tablet Orally Once a day , Taking Lancets 30G - Miscellaneous Use 1 lancet E11.9 once daily , Taking Metoprolol Tartrate 100 MG Tablet 1 tablet with food Orally Twice a day , Taking Test Strips - - Dx: E11.9 Dx: Diabetes Type II Once daily , Medication List reviewed and reconciled with the patient * Allergies: N .K.D.A. Objective: * Vitals: W t:237.0lbs, Ht: 6ft, BP:182/92mm Hg, BMI:32.14Index, Ht-cm: 182.88 cm, Wt-k.5 kg. * Examination: P hysical Exam: GENERAL: [...] both upper and lower bilateral extremities. NEUROLOGIC: aishwarya ulloaly normal. SKIN: n o rashes, ulcerations, or suspicious lesions. LYMPH NODES: n o cervical adenopathy, nodes normal. MENTAL STATUS: a lert and oriented x3, normal mood and affect. Assessment: * Assessment: 1. H ypertension - I10 (Primary) 2 . D iabetes - E11.9 Plan: * Treatment: * Preventive Medicine: Screenings/Counseling: B [facility] ACTION PLAN Above Normal BMI Follow-up D ietary management education, guidance, and counseling * * Electronic signature of Chuck Rudolph MD, [phone] on 09/01/2024 at 10:19 AM EDT Sign off status: Pending Visit Status: C HK (Check Out) * Provider: Fe Rudolph ([facility])MD Date: 08/30/2024 Generated for Printi ng/Faxing/eTransmitting on: 09/01/2024 10:19 AM EDT History and Physical Notes * HPI (History of Present Illness) Category Sub-Category Detail Notes Category Not es General diziness and off balnce - blurry vision - sugatr wsa goo bp wwa low Examination Category Sub-Category Detail Notes Category Not [...]
--- OUTSIDE RECORDS SUMMARY | 2024-08-31 06:16 | XMS_ITS ---
Author Organization [facility] in [place] Address [address] [place] [address] Care Team Providers Care Carpenter Cradle And Dolly Name Role Phone Chuck Rudolph Primary Care Provider REASON FOR VISIT b/p meds Encounters Encounter Location Date Provider Diagnosis [facility] [address] [place] [address] 08/31/2024 Chuck Rudolph Plan Of Treatment No Information Progress Notes * Donald DIETZ ADOB:[birth year] (49 yo M)Acc No.[id number]:08/31/2024 Patient: Donald JARVIS :1975 A ge:49 Y S ex:Male Address:[address] [place] [address] [address] [facility] [address] * true * Date: Generated for Tj montemayor/Geneav/eTransmitting on: 0 09/01/2024 10:19 AM EDT
--- OUTSIDE RECORDS SUMMARY | 2024-08-31 14:47 | XMS_ITS ---
Author Organization [facility] in [place] Address [address] [place] [address] Care Team Providers Care Hopper Attendant Name Role Phone Chuck Rudolph Primary Care Provider REASON FOR VISIT MRI order Encounters Encounter Location Date Provider Diagnosis [facility] [address] [place] [address] 08/31/2024 Chuck Rudolph Low back pain at multiple sites M54.50 Assessments Encounter Date Diagnosis (ICD Code) Assessment Notes Treatment Notes Treatment Clinical Notes Section Notes 08/31/2024 Low back pain at multiple sites (ICD-10 - M54.50) Plan Of Treatment Pending Test Test Name Order Date MRI Lumbar Spine w/o contrast 08/31/2024 Progress Notes * Donald DIETZ ADOB:[birth year] (49 yo M)Acc No.[id number]:08/31/2024 Patient: Donald JARVIS :1975 A ge:49 Y S ex:Male Address:[address] [place] [address] [address], [place], [address] Subjective: * Chief Complaints: * M RI order * Medical History: * Surgical History: * Hospitalization/Major Diagno stic Procedure: * Medications: Objective: * Vitals: * Physical Examination: Assessment: * Assessment: 1. L ow back pain at multiple sites - M54.50 (Primary) Plan: * Treatment: * Procedure Codes: * true * Date: Generated for Tj montemayor/[place]/Treasure on: 0 09/01/2024 10:19 AM EDT
[2024-09-01] VITALS (21 sets, daily range): BP systolic 161–196; BP diastolic 99–120; PULSE 56–89; TEMP 37.2; O2SAT 94–100
--- NOTE | 2024-09-01 10:15 | ECG_ITS ---
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 Measurements Intervals [place] Rate: 56 P: 52 NJ: 176 QRS: 32 QRSD: 94 T: 55 QT: 398 QTc: 389 Interpretive Statements 1100 Sinus rhythm 5211 Minimal voltage criteria for LVH, may be normal variant 9130 borderline ECG No previous ECG available for comparison Electronically Signed On 09-01-2024 19:30:06 EDT by ALCIDES RIBEIRO M.D.
--- NOTE | 2024-09-01 10:23 | XR_ITS ---
The [place] [id number] Patient Name: DEMETRIO DIETZ MRN: [id number] date: 1975 Sex: M Assigned Patient Location: ER Current Patient Location: ER Accession/Order Number: [id number] Exam Date: 09/01/2024 11:47 Report Date: 09/01/2024 11:49 At the request of: RIVKA HOGAN MD Procedure: XR chest 1V PORTABLE P ERECT CHEST 1042 hours CLINICAL HISTORY: Shortness of breath and palpitations. Syncopal episode. COMPARISON: None Large defibrillator pads are seen at the central and inferior left chest. The heart is top normal in size. There is no vascular congestion. No consolidation is seen. There is no effusion or pneumothorax. The osseous structures are intact. XR/XR chest 1V IMPRESSION: NO ACUTE FINDINGS Impression dictated by: Carmelita Gardner M.D. 09/01/2024 11:49 AM Dictation Location: [place] [address] Electronically authenticated by: [id number] Y Date: 09/01/2024 11:49
[2024-09-01 10:24] LABS: Glucometer 122 mg/dL (74-106)
[2024-09-01 10:35] LABS: Basophils Absolute Auto 0.1 10^3/uL (0.0-0.1); Basophils Percent Auto 0.5 % (0.2-2.0); Eosinophils Absolute Auto 0.3 10^3/uL (0.0-0.7); Eosinophils Percent Auto 3.2 % (0.9-7.0); Immature Granulocytes Abs Auto 0.03 10^3/uL (0.00-0.03); Immature Granulocytes Pct Auto 0.3 % (0.0-0.5); Lymphocytes Absolute Auto 2.3 10^3/uL (1.2-3.8); Lymphocytes Percent Auto 23.4 % (20.5-60.0); Mean Corpuscular HGB Conc 34.3 g/dL (29.9-35.2); Mean Corpuscular Hemoglobin 31.9 pg (25.9-34.0); Mean Corpuscular Volume 93.1 fL (80.0-94.0); Mean Platelet Volume 9.3 fL (9.5-13.5); Monocytes Absolute Auto 0.8 10^3/uL (0.3-0.8); Monocytes Percent Auto 8.4 % (1.7-12.0); Neutrophils Absolute Auto 6.3 10^3/uL (1.4-6.5); Neutrophils Percent Auto 64.2 % (43.0-75.0); Platelet Count 377 10^3/uL (150-450); Red Blood Count 3.76 10^6/uL (4.70-6.10); White Blood Count 9.8 10^3/uL (4.0-11.0)
[2024-09-01 10:42] LABS: Magnesium 1.5 mg/dL (1.8-2.4)
[2024-09-01 10:45] LABS: INR 1.06; Prothrombin Time 11.2 sec (9.0-11.6)
[2024-09-01 10:51] LABS: Alanine Aminotransferase 27 U/L (16-63); Albumin Level 3.7 g/dL (3.4-5.0); Alkaline Phosphatase 111 U/L (46-116); Anion Gap 14.3; Aspartate Amino Transferase 12 U/L (15-37); BUN Creatinine Ratio 24.3; Bilirubin Total 0.6 mg/dL (0.2-1.0); Calcium 9.9 mg/dL (8.5-10.1); Carbon Dioxide 26.6 mmol/L (21.0-32.0); Chloride 101 mmol/L (98-107); Estimated GFR (African America >60 (>=60 mL/min/1.73m^2); Estimated GFR (Non-African Ame >60 (>=60 mL/min/1.73m^2); Globulin 3.7 g/dL; Glucose 118 mg/dL (74-106); Potassium 3.9 mmol/L (3.5-5.1); Sodium 138 mmol/L (136-145); Total Protein 7.4 g/dL (6.4-8.2); Troponin I High Sensitivity 7.9 pg/mL (4.0-76.1)
--- NOTE | 2024-09-01 11:02 | ED.ARRPALP1 ---
HPI - Arrhythmia/Palpitations General Chief Complaint: Arrhythmia/Palpitations Stated Complaint: DIZZY Time Seen by Provider: 09/01/24 10:12 Source: patient Mode of arrival: ambulance History of Present Illness HPI narrative: The patient is a 49-year-old male is coming to us after he had an episode of possible syncope, by the time the EMS arrived the patient also had another episode that his heart rate went down to the 20s at least and during that time he was sweating and feeling dizzy and he already felt that he is going to get sick before that. The patient upon arrival did not have any complain he does have some cold sweats There was no chest pain nausea vomiting or any other concern he denies having any symptoms at all today except for this happening, and he also mentioned that he had some flushed feeling almost few weeks ago when his blood pressure medication had to be adjusted increasing his Irbesartan and decreasing his beta-lily But the patient mentioned that it was not like this feeling today Related Data Home Medications ?Medication ?Instructions ?Recorded ?Confirmed irbesartan 150 mg tablet 150 mg PO DAILY 09/01/24 09/01/24 irbesartan 150 mg tablet 150 mg PO DAILY 09/01/24 09/01/24 metoprolol tartrate 50 mg tablet 50 mg PO BID 09/01/24 09/01/24 metoprolol tartrate 50 mg tablet 50 mg PO DAILY 09/01/24 09/01/24 Allergies Allergy/AdvReac Type Severity Reaction Status Date / Time No Known Drug Allergies Allergy Verified 09/01/24 10:10 Review of Systems ROS Status of ROS 10 or more systems reviewed and unremarkable except as noted in history and below [facility] Medical History (Updated 09/01/24 @ 11:04 by Izabella Villafana MD) HTN (hypertension) ?I10 - Essential (primary) hypertension (ICD-10) Exam Narrative Exam Narrative: Nurses notes and vital signs reviewed and patient is not hypoxic. General: Well-appearing Skin: Warm, dry, no pallor noted. No rash. Head: Normocephalic, atraumatic. Neck: Supple, non-tender. Eye: Pupils are equal, round and EOMI. No scleral icterus. Ears, Nose, Mouth, and Throat: TM are clear, no nasal mucosal hypertrophy. Oral mucosa is moist, no posterior oropharynx erythema, uvula is mid-line Cardiovascular: Regular Rate and Rhythm without murmur, gallop or rub. Respiratory: No accessory muscle use or respiratory distress. Lungs are clear to auscultation, no wheezing, rales or rhonchi Chest Wall: no tenderness Back: No midline thoracic or lumbar vertebral tenderness. No CVA tenderness Musculoskeletal: normal ROM, no calf or popliteal tenderness, no lower extremity edema/swelling GI: Abdomen is soft, non-distended. Normal bowel sounds. No masses appreciated. No tenderness to palpation. No rebound, guarding, or rigidity noted. Neurological: A&O x4. No cranial nerve dysfunction observed. No truncal ataxia. Constitutional Vital Signs, click to edit/add: Last Vital Signs Temp 99.0 F 09/01/24 10:10 Pulse 79 09/01/24 11:50 Resp 25 H 09/01/24 11:50 BP 161/99 H 09/01/24 11:45 Pulse Ox 100 09/01/24 11:50 O2 Del Method Nasal Cannula 09/01/24 10:26 O2 Flow Rate 2 09/01/24 10:26 Course Vital Signs Vital signs: Vital Signs Temperature 99.0 F 09/01/24 10:10 Pulse Rate 60 09/01/24 10:10 Respiratory Rate 18 09/01/24 10:10 Blood Pressure 178/115 H 09/01/24 10:10 Pulse Oximetry 96 09/01/24 10:10 Oxygen Delivery Method Room Air 09/01/24 10:10 Temperature 99.0 F 09/01/24 10:10 Pulse Rate 79 09/01/24 11:50 Respiratory Rate 25 H 09/01/24 11:50 Blood Pressure 161/99 H 09/01/24 11:45 Pulse Oximetry 100 09/01/24 11:50 Oxygen Delivery Method Nasal Cannula 09/01/24 10:26 Oxygen Delivery Flow Rate 2 09/01/24 10:26 MDM - Arrhythmia/Palpitations MDM Narrative Medical decision making narrative: Upon arrival the patient did look a little bit pale but he had no symptoms but within few minutes of being in the room and while we getting more further triaging the patient EKG initially was showing sinus rhythm with a heart rate of [address] elevation or depression, there was no FL elongation there was no heart block The patient had of the CPR and pace maker pads placed on his chest wall upon arrival The patient then had another episode where he was sweating he was not responsive although he had his eyes open but that for at least 3 to 4 seconds during which he was wearing and he was staring and he responded right away after that but his heart rate was slow and on the monitor it did show that the possible very long pause in his heart rate and then he became bradycardic around the 20s and back up to the heart rate of 40s It is noted that the patient possibly was in asystole for few seconds when his heart rate showed a very long pause that was not able to be recorded on the telemetry by the time I got to the room but the patient was pale and staring without responding although he did have a very weak pulse The patient was provided with atropine 1 mg after which his heart rate is 85 right now CBC and chemistry showed only that the magnesium is 1.5 the patient was provided with 2 g of magnesium IV Patient have no history of any cardiac events EKG after atropine is 83 sinus rhythm no QTc or any FL prolongation I discussed the case with the cardiology on-call and she requested the patient to be transferred by life flight to [facility] as soon as possible The patient case was discussed initially with the hospitalist but he requested the patient to be transferred from an ER to an ER, I did discuss the case with and she accepted the patient The patient right now heart rate is 76 sinus bradycardia Chest x-ray showed no acute pathology Patient will be LifeFlight transferred to [facility] Lab Data Labs: Lab Results 09/01/24 Range/Units 10:23 WBC 9.8 (4.0-11.0) 10^3/uL RBC 3.76 L (4.70-6.10) 10^6/uL Hgb 12.0 L (14.0-18.0) g/dL Hct 35.0 L (42.0-54.0) % MCV 93.1 (80.0-94.0) fL MCH 31.9 (25.9-34.0) pg MCHC 34.3 (29.9-35.2) g/dL RDW 12.0 (11.0-15.0) % Plt Count 377 (150-450) 10^3/uL MPV 9.3 L (9.5-13.5) fL Neut % (Auto) 64.2 (43.0-75.0) % Lymph % (Auto) 23.4 (20.5-60.0) % Geary % (Auto) 8.4 (1.7-12.0) % Eos % (Auto) 3.2 (0.9-7.0) % Baso % (Auto) 0.5 (0.2-2.0) % Neut # (Auto) 6.3 (1.4-6.5) 10^3/uL Lymph # (Auto) 2.3 (1.2-3.8) 10^3/uL Geary # (Auto) 0.8 (0.3-0.8) 10^3/uL Eos # (Auto) 0.3 (0.0-0.7) 10^3/uL Baso # (Auto) 0.1 (0.0-0.1) 10^3/uL Abs Immat Gran (auto) 0.03 (0.00-0.03) 10^3/uL Imm/Tot Granulo (auto) 0.3 (0.0-0.5) % PT 11.2 (9.0-11.6) sec INR 1.06 Sodium 138 (136-145) mmol/L Potassium 3.9 (3.5-5.1) mmol/L Chloride 101 (98-107) mmol/L Carbon Dioxide 26.6 (21.0-32.0) mmol/L Anion Gap 14.3 BUN 18.0 (7.0-18.0) mg/dL Creatinine 0.74 (0.70-1.30) mg/dL Est GFR ( Amer) >60 (>=60 mL/min/1.73m^2) Est GFR (Non-Af Amer) >60 (>=60 mL/min/1.73m^2) BUN/Creatinine Ratio 24.3 Glucose 118 H (74-106) mg/dL Calcium 9.9 (8.5-10.1) mg/dL Magnesium 1.5 L (1.8-2.4) mg/dL Total Bilirubin 0.6 (0.2-1.0) mg/dL AST 12 L (15-37) U/L ALT 27 (16-63) U/L Alkaline Phosphatase 111 (46-116) U/L Troponin I High Sens 7.9 (4.0-76.1) pg/mL Total Protein 7.4 (6.4-8.2) g/dL Albumin 3.7 (3.4-5.0) g/dL Globulin 3.7 g/dL Albumin/Globulin Ratio 1.0 POC Glucose 122 H (74-106) mg/dL Discharge Plan Discharge Chief Complaint: Arrhythmia/Palpitations Clinical Impression: Bradycardia, Sinus pause Patient Disposition: [facility] Time of Disposition Decision: 11:03
[2024-09-01] MEDS: MAGNESIUM SULFATE IN WATER 2 GM/50 ML PREMIX IV (11:09)
--- NOTE | 2024-09-01 15:22 | ECG_ITS ---
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 Measurements Intervals [place] Rate: 53 P: 58 [place]: 172 QRS: 36 QRSD: 96 T: 56 QT: 416 QTc: 398 Interpretive Statements 1100 Sinus rhythm 9110 normal ECG Compared to ECG 09/01/2024 10:11:39 No significant changes Electronically Signed On 09-01-2024 19:30:26 EDT by ALCIDES RIBEIRO M.D.
--- NOTE | 2024-09-01 15:23 | ECG_ITS ---
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 Measurements Intervals [place] Rate: 83 P: 54 [place]: 182 QRS: 28 QRSD: 92 T: 34 QT: 372 QTc: 412 Interpretive Statements 1100 Sinus rhythm 4068 Nonspecific [place] abnormality 5211 Minimal voltage criteria for LVH, may be normal variant 9130 borderline ECG Compared to ECG 09/01/2024 10:12:48 Left ventricular hypertrophy now present Electronically Signed On 09-01-2024 19:31:52 EDT by ALCIDES RIBEIRO M.D.
== END 2024-09-01 12:45 | disposition short-term general hospital (02) ==
PROVIDERS: Emergency Provider Emergency Medicine; PCP Family Medicine
DX: R00.1 Bradycardia, unspecified (principal); I45.5 Other specified heart block
CPT/HCPCS: 36415; 71045; 80053; 82948; 83735; 84484; 85025; 85610; 93005; 96365; 99285; J0461; J1265; J3475

== ENCOUNTER 2024-09-20 15:00 | Outpatient (RCR) | payer BC, SELFPAY | END 2024-10-11 15:22 | disposition home or self-care (01) | LOC: PT 15:00 | PROVIDERS: PCP Family Medicine; Visit Provider Family Medicine | DX: M54.50 Low back pain, unspecified (principal) | CPT/HCPCS: 97014; 97110; 97162 ==